=== PATIENT | female | born 1990 | race Two or more races ===

== ENCOUNTER 2017-12-10 21:55 | Emergency (ER) | payer OTHER ==
[~2017-12-10] VITALS: Ht 160 cm; Wt 68.0 kg
[2017-12-10 21:55] VITALS: BP 128/91
--- NOTE | 2017-12-10 22:20 | ED.ADGEN ---
Adult General Chief Complaint Chief Complaint ".. I ve got some abdomen pain... ".. " It may be my gastritis..." HPI HPI Patient is a 17 year old female who presents with gastritis complaints. Pain is localized epigastric and right upper quadrant.. She has noted that pain seems to occur after high-fat meals. Patient has been on Zantac in the past with some relief. Patient is not currently taking her Zantac. No recent travel. No specific ill contacts. No history immunosuppression. Patient does have a history of anemia since of her last child.. Patient is not currently taking her vitamins. No history of dark or tarry stools. His family history of early onset gallbladder disease with her mother. Patient normally follows at [facility]. Patient presents with for child of 6 months 12 days. Review of Systems Review of Systems Constitutional: Denies fever or chills [] Eyes: Denies change in visual acuity, redness, or eye pain [] HENT: Denies nasal congestion or sore throat [] Respiratory: Denies cough or shortness of breath [] Cardiovascular: No additional information not addressed in HPI [] GI: Complaints of abdominal pain. Denies, nausea, vomiting, bloody stools or diarrhea [] : Denies dysuria or hematuria [] Musculoskeletal: Denies back pain or joint pain [] Integument: Denies rash or skin lesions [] Neurologic: Denies headache, focal weakness or sensory changes [] Endocrine: Denies polyuria or polydipsia [] All other systems were reviewed and found to be within normal limits, except as documented in this note. Family History Family History Mother has had gallbladder disease requiring cholecystectomy at age 30 Current Medications Current Medications See nursing for home meds Allergies Allergies No known drug allergies Physical Exam Physical Exam Constitutional: Well developed, well nourished, no acute distress, non-toxic appearance. [] HENT: Normocephalic, atraumatic, bilateral external ears normal, oropharynx moist, no oral exudates, nose normal. [] Eyes: PERRLA, EOMI, conjunctiva pale, no discharge. [] Neck: Normal range of motion, no tenderness, supple, no stridor. [] Cardiovascular:Heart rate regular rhythm, no murmur [] Lungs & Thorax: Bilateral breath sounds clear to auscultation [] Abdomen: Bowel sounds normal, soft, epigastric and right upper quadrant tenderness, no masses, no pulsatile masses. [] Climbs rectal exam at this time. Skin: Warm, dry, no erythema, no rash. [] Back: No tenderness, no CVA tenderness. [] Extremities: No tenderness, no cyanosis, no clubbing, ROM intact, no edema. [] No psoas or heeltap Neurologic: Alert and oriented X 3, normal motor function, normal sensory function, no focal deficits noted. [] Psychologic: Affect anxious, judgement normal, mood normal. [] EKG EKG [] Radiology/Procedures Radiology/Procedures [] Course & Med Decision Making Course & Med Decision Making Pertinent Labs and Imaging studies reviewed. (See chart for details). Patient declines lab this time. Patient to resume her Zantac 150 mg twice a day. Patient to resume vitamins. Patient to follow-up primary care. Patient to consider evaluation for gallbladder disease. Patient return of any concerns. May take Tylenol for pain. Avoid NSAIDs. Avoid high fat meals. [] Final Impression Final Impression 1. Abdomen Pain 2. Gastritis[] 3. Suspect Biliary Colic 4. Hx. of Anemia Problems: Dragon Disclaimer Dragon Disclaimer This electronic medical record was generated, in whole or in part, using a voice recognition dictation system. TRACIE ANDERSON MD Dec 10, 2017 22:20
[2017-12-10] MEDS ORDERED: RANI150T6 PO (22:32)
== END 2017-12-10 22:55 | disposition home or self-care (01) ==
LOC: ER 21:55 → EDBD 21:55 → ER 22:55
DX: K29.70 Gastritis, unspecified, without bleeding (principal); Z86.2 Personal history of diseases of the blood and blood-forming organs and certain disorders involving the immune mechanism
CPT/HCPCS: 99282